=== PATIENT | female | born 1945 ===

== ENCOUNTER 2016-07-31 08:54 | Outpatient (CLI) | payer MEDICARE ==
--- NOTE | 2016-08-01 10:59 | Magnetic Resonance Report ---
MRI THORACIC SPINE WITHOUT AND WITH CONTRAST: 07/31/16 CLINICAL: Status post surgical excision of meningioma at T11. COMPARISON: 07/12/15 TECHNIQUE: Sagittal and axial T1 and T2, and sagittal STIR sequences plus sagittal and axial T1 fat-sat postcontrast sequences on a 1.5 [place] magnet. 20 cc of Multihance was injected intravenously without complication and consent was obtained prior to the administration of contrast. FINDINGS: Status post posterior decompression with excision of tumor at T11 and status post posterior fusion from T10-T12. Stable chronic mid wedge compression fracture of T6. The overall marrow signal is normal. No marrow edema indicating acute or subacute fracture. The spinal cord is normal size with normal signal to the level of T10. There appears to be mild to moderate cord atrophy along with mild increased T2 signal of the cord at the T10-T11 disc space extending inferiorly to the T11-T12 disc space. However, no abnormal enhancement of the cord or within the spinal canal. Small central disc protrusions are unchanged from T10-11 through T12-L1.Normal appearance of the hardware. No abscess or fluid collection. No suspicious enhancement. Signal artifacts from metal at the surgical site alter soft tissue signal such that minimal residual tumor cannot be excluded. IMPRESSION: Status post surgical excision of meningioma at T11. Minimal if any residual tumor. Suspect mild to moderate cord atrophy at the surgical site but artifacts from the metal limit the examination of the cord at that level.
== END 2016-07-31 08:55 | disposition home or self-care (01) ==
LOC: SPVIMAG 08:54
PROVIDERS: ATTEND Neurological Surgery
DX: M51.24 Other intervertebral disc displacement, thoracic region (principal); M48.54XA Collapsed vertebra, not elsewhere classified, thoracic region, initial encounter for fracture; D48.2 Neoplasm of uncertain behavior of peripheral nerves and autonomic nervous system
CPT/HCPCS: 72157; A9577